=== PATIENT | male | born 1990 | race Caucasian/White ===

== ENCOUNTER 2016-10-21 04:27 | Inpatient (IN) | payer OTHER ==
[2016-10-21 05:08] VITALS: BMI 19.9
--- NOTE | 2016-10-21 05:53 | ED PDOC ---
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 Patient states he has been experiencing right-sided testicular pain/swelling over the past week, associated with abdominal pain. Patient also complaining of chills and nausea for the past 4 days. Patient notes 2 weeks ago he had right- sided flank pain, which has resolved, but states he was scheduled for a renal ultrasound for further follow-up. Patient denies any fever, chills, chest pain, shortness of breath, diarrhea, back pain, neck pain, headache, dizziness, or any other complaints. Time/Duration: 1 week Symptom Onset: Gradual Symptom Course: Unchanged Activities at Onset: Rest, Light Context: Home Past Medical History - Provider Review Nursing Documentation Reviewed: Yes - Infectious Disease Hx of Infectious Diseases: None - Tetanus Immunization Tetanus Immunization: Unknown - Cardiac Hx Cardiac Disorders: No Other/Comment: VATER syndrome - Pulmonary Hx Respiratory Disorders: No - Neurological Hx Neurological Disorder: No - HEENT Hx HEENT Disorder: No - Renal Hx Renal Disorder: Yes Other/Comment: Chronic UTIs and Urinary Surgeries for obstructions - Endocrine/Metabolic Hx Endocrine Disorders: No - Hematological/Oncological Hx Blood Disorders: No - Integumentary Hx Dermatological Disorder: No - Musculoskeletal/Rheumatological Hx Falls: No - Gastrointestinal Hx Gastrointestinal Disorders: No - Genitourinary/Gynecological Hx Genitourinary Disorders: No Hx Urinary Tract Infection: Yes - Psychiatric Hx Psychophysiologic Disorder: No Hx Substance Use: No - Surgical History Other/Comment: Spine, left hand, Esophagus; surgery for testicular torsion - Anesthesia Hx Anesthesia: Yes Hx Anesthesia Reactions: No Hx Malignant Hyperthermia: No - Suicidal Assessment Feels Threatened In Home Enviroment: No Family/Social History - Physician Review Nursing Documentation Reviewed: Yes Family/Social History: No Known Family HX Smoking Status: Never Smoked Hx Alcohol Use: No Hx Substance Use: No Allergies/Home Meds Allergies/Adverse Reactions: Allergies Sulfa (Sulfonamide Antibiotics) Allergy (Verified 10/21/16 05:55) ITCHING Review of Systems - Physician Review All systems were reviewed & negative as marked: Yes - Review of Systems Constitutional: Other (+chills) Eyes: Normal ENT: Normal Respiratory: Normal. absent: SOB, Cough Cardiovascular: Normal. absent: Chest Pain Gastrointestinal: Abdominal Pain Genitourinary Male: Other (+right testicular pain) Musculoskeletal: Back Pain. absent: Neck Pain Skin: Normal. absent: Rash Neurological: Normal. absent: Headache, Dizziness Endocrine: Normal Hemo/Lymphatic: Normal Psychiatric: Normal Physical Exam Vital Signs Reviewed: Yes Vital Signs Temp Pulse Resp BP Pulse Ox 10/21/16 05:08 98.6 F 72 18 112/64 100 Temperature: Afebrile Blood Pressure: Normal Pulse: Regular Respiratory Rate: Normal Appearance: Positive for: Well-Appearing, Non-Toxic, Comfortable Pain Distress: None Mental Status: Positive for: Alert and Oriented X 3 - Systems Exam Head: Present: Atraumatic, Normocephalic Pupils: Present: PERRL Extroacular Muscles: Present: EOMI Conjunctiva: Present: Normal Mouth: Present: Moist Mucous Membranes Neck: Present: Normal Range of Motion Respiratory/Chest: Present: Clear to Auscultation, Good Air Exchange. No: Respiratory Distress, Accessory Muscle Use Cardiovascular: Present: Regular Rate and Rhythm, Normal S1, S2. No: Murmurs Abdomen: Present: Normal Bowel Sounds. No: Tenderness, Distention, Peritoneal Signs Genitourinary Male: Present: Testicle Tenderness (Severe tenderness to right testicle), Testicle Swelling (Significantly swollen right testicle) Upper Extremity: Present: Normal Inspection. No: Cyanosis, Edema Lower Extremity: Present: Normal Inspection. No: Edema Neurological: Present: GCS=15, CN II-XII Intact, Speech Normal Skin: Present: Warm, Dry, Normal Color. No: Rashes Psychiatric: Present: Alert, Oriented x 3, Normal Insight, Normal Concentration Medical Decision Making ED Course and Treatment: 10/21/16 05:53 Impression: 26 year old male complaining of right-sided testicular pain/swelling for 1 week. Plan: -- US Duplex Testes -- Labs, amylase, lipase -- Urinalysis -- IV fluids -- Zofran -- Pepcid -- Morphine -- Reassess and disposition Prior Visits: Notes and results from previous visits were reviewed. Progress Notes: Concern that patient has had symptoms in testicle for a week - high concern for torsion but far past 6 hour window - sono and CT ordered, along with analgesia - case endorsed to Dr. Buckner. 10/21/16 07:37 - Lab Interpretations Lab Results: 10/21/16 07:15 10/21/16 07:15 Lab Results 10/21/16 07:15: WBC 14.4 H D, RBC 5.30, Hgb 17.2, Hct 47.2, MCV 89.1, MCH 32.5, MCHC 36.4, RDW 11.7, Plt Count 255, MPV 11.4 H, Gran % 84.8 H, Lymph % (Auto) 9.5 L, [place] % (Auto) 5.5, Eos % (Auto) 0.1 L, Baso % (Auto) 0.1, Gran # 12.22 H , Lymph # 1.4, [place] # 0.8 H, Eos # 0.0, Baso # 0.01, PT 10.7, INR 0.99, APTT 31.1 H, Sodium 140, Potassium 3.6, Chloride 98, Carbon Dioxide 28, Anion Gap 18 , BUN 10, Creatinine 0.8, Est GFR ( Amer) > 60, Est GFR (Non-Af Amer) > 60, Random Glucose 117 H, Calcium 9.7, Total Bilirubin 2.6 H, AST 55, ALT 65 H, Alkaline Phosphatase 113, Total Protein 9.4 H, Albumin 4.8, Globulin 4.5, Albumin/Globulin Ratio 1.1, Amylase 98, Lipase 56 - RAD Interpretation Radiology Orders: 10/21/16 06:08 TESTES DUPLEX COMPLETE [US] Stat - Medication Orders Current Medication Orders: Discontinued Medications Acetaminophen (Tylenol 325mg Tab) 650 mg PO Q4H PRN PRN Reason: Pain, Mild (1-3) Last Admin: 10/23/16 00:19 Dose: 650 MG [facility] Pain/Vitals Document 10/23/16 00:19 KGD (Rec: 10/23/16 00:19 KGD [id number]) Presence of Pain Presence of Pain No Pain Scale Used Pain Scale Used Numeric Location Pain 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 Yes Sleep Is patient sleeping during reassessment? No Presence of Pain Presence of Pain No Amoxicillin/Clavulanate Potassium (Augmentin 875 Mg-125 Mg Tab) 1 tab PO Q12 CODY PRN Reason: Protocol Stop: 10/30/16 10:01 Last Admin: 10/23/16 09:00 Dose: 1 TAB Doxycycline Hyclate (Doryx) 100 mg PO Q12 CODY PRN Reason: Protocol Stop: 10/30/16 22:01 Last Admin: 10/23/16 09:00 Dose: 100 MG Famotidine (Pepcid) 20 mg IVP STAT STA Stop: 10/21/16 06:11 Last Admin: 10/21/16 07:23 Dose: 20 MG IVP Administration Document 10/21/16 07:23 TA (Rec: 10/21/16 07:23 TA [id number]) Charges for Administration # of IVP Administrations 1 Sodium Chloride (Sodium Chloride 0.9%) 1,000 mls @ 1,000 mls/hr IV .Q1H STA Stop: 10/21/16 07:09 Last Admin: 10/21/16 07:23 Dose: 1,000 MLS/HR eMAR Start Stop Document 10/21/16 07:23 TA (Rec: 10/21/16 07:23 TA [id number]) Intravenous Solution Start Date 10/21/16 Start Time 07:23 Meropenem 1g/NS 100mL IVPB (Meropenem 1g/Ns 100ml Ivpb) 100 mls @ 100 mls/hr IVPB STAT STA PRN Reason: Protocol Stop: 10/21/16 08:51 Last Admin: 10/21/16 08:38 Dose: 100 MLS/HR eMAR Start Stop Document 10/21/16 08:38 TA (Rec: 10/21/16 08:38 TA [id number]) Intravenous Solution Start Date 10/21/16 Start Time 08:38 Meropenem 1g/NS 100mL IVPB (Meropenem 1g/Ns 100ml Ivpb) 100 mls @ 100 mls/hr IVPB Q8 CODY PRN Reason: Protocol Stop: 10/30/16 22:01 Last Admin: 10/23/16 05:25 Dose: 100 MLS/HR eMAR Start Stop Document 10/23/16 05:25 KGD (Rec: 10/23/16 05:25 KGD [id number]) Intravenous Solution Start Date 10/23/16 Start Time 05:25 End Date 10/23/16 End time 06:25 Total Infusion Time 60 Sodium Chloride (Sodium Chloride 0.9%) 1,000 mls @ 100 mls/hr IV .Q10H CODY Stop: 10/22/16 03:29 Last Admin: 10/21/16 17:34 Dose: 100 MLS/HR eMAR Start Stop Document 10/21/16 17:34 MJO (Rec: 10/21/16 17:34 MJO [id number]) Intravenous Solution Start Date 10/21/16 Start Time 17:34 Morphine Sulfate (Morphine) 4 mg IVP STAT STA Stop: 10/21/16 06:11 Last Admin: 10/21/16 07:22 Dose: 4 MG [facility] Pain Assessment Document 10/21/16 07:22 TA (Rec: 10/21/16 07:23 TA [id number]) Pain Reassessment Is this a pain reassessment? No Sleep Is patient sleeping during reassessment? No Presence of Pain Presence of Pain Yes Pain Scale Used Pain Scale Used Numeric IVP Administration Document 10/21/16 07:22 TA (Rec: 10/21/16 07:23 TA [id number]) Charges for Administration # of IVP Administrations 1 Re-Assess: RUI Pain Assessment Document 10/21/16 10:30 MJO (Rec: 10/21/16 17:13 MJO [id number]) Pain Reassessment Is this a pain reassessment? Yes Sleep Is patient sleeping during reassessment? No Presence of Pain Presence of Pain No Morphine Sulfate (Morphine) 2 mg IVP Q4 PRN PRN Reason: Pain, moderate (4-7) Ondansetron HCl (Zofran Inj) 4 mg IVP STAT STA Stop: 10/21/16 06:11 Last Admin: 10/21/16 07:23 Dose: 4 MG IVP Administration Document 10/21/16 07:23 TA (Rec: 10/21/16 07:23 TA [id number]) Charges for Administration # of IVP Administrations 1 Pneumococcal Polyvalent Vaccine (Pneumovax 23 Vaccine) 0.5 ml IM .ONCE ONE Stop: 10/21/16 18:06 - Scribe Statement The provider has reviewed the documentation as recorded by the Leeanna Bradshaw Provider Attestation: All medical record entries made by the Christopheribdeng were at my direction and personally dictated by me. I have reviewed the chart and agree that the record accurately reflects my personal performance of the history, physical exam, medical decision making, and the department course for this patient. I have also personally directed, reviewed, and agree with the discharge instructions and disposition. Disposition/Present on Arrival - Present on Arrival Any Indicators Present on Arrival: No History of DVT/PE: No History of Uncontrolled Diabetes: No Urinary Catheter: No History of Decub. Ulcer: No History Surgical Site Infection Following: None - Disposition Have Diagnosis and Disposition been Completed?: Yes Diagnosis: Testicular pain Disposition: HOSPITALIZED Disposition Time: 07:00 Patient Plan: Admission Condition: GOOD
[2016-10-21] MEDS ORDERED: Sodium Chloride 0.9% 1,000 ML IV STA (06:10)
[2016-10-21] MEDS ORDERED: Morphine 4 mg/ml ISec IVP STA (06:10)
[2016-10-21 07:30] LABS: ADD MANUAL DIFF? NO
--- NOTE | 2016-10-21 07:33 | ED PDOC ---
Physical Exam Vital Signs Reviewed: Yes Vital Signs Temp Pulse Resp BP Pulse Ox 10/21/16 05:08 98.6 F 72 18 112/64 100 Temperature: Afebrile Blood Pressure: Normal Pulse: Regular Respiratory Rate: Normal Medical Decision Making ED Course and Treatment: 10/21/16 07:32 Patient signed out to me by Dr. Prince at 07:00. Pending ultrasound results. 10/21/16 08:09 pt's abd soft/nt/nd, no RLQ or suprapubic TTP. No hernias. L. testicle non-tender R. testicle with swelling and tenderness to palpation. Not high riding. appears distended. dw US tech, states no torsion. R. epididomitis. dw Dr. Hoff, accepted to his service, recommends meropenem based on previous UCx. Pt requests Dr. Hoff. pt states he is currently not in pain, aware of and agrees with plan Report Date: 10/21/16 08:20 Procedure: Testes ultrasound Dictated By: Rob Pastrana MD Impression: Findings consistent with right epididymis. No evidence of right orchitis. Incidental 8 mm right epididymal cyst. No evidence of testicular torsion. - Lab Interpretations Lab Results: 10/21/16 07:15 10/21/16 07:15 Lab Results 10/21/16 07:15: WBC 14.4 H D, RBC 5.30, Hgb 17.2, Hct 47.2, MCV 89.1, MCH 32.5, MCHC 36.4, RDW 11.7, Plt Count 255, MPV 11.4 H, Gran % 84.8 H, Lymph % (Auto) 9.5 L, [place] % (Auto) 5.5, Eos % (Auto) 0.1 L, Baso % (Auto) 0.1, Gran # 12.22 H , Lymph # 1.4, [place] # 0.8 H, Eos # 0.0, Baso # 0.01, PT 10.7, INR 0.99, APTT 31.1 H, Sodium 140, Potassium 3.6, Chloride 98, Carbon Dioxide 28, Anion Gap 18 , BUN 10, Creatinine 0.8, Est GFR ( Amer) > 60, Est GFR (Non-Af Amer) > 60, Random Glucose 117 H, Calcium 9.7, Total Bilirubin 2.6 H, AST 55, ALT 65 H, Alkaline Phosphatase 113, Total Protein 9.4 H, Albumin 4.8, Globulin 4.5, Albumin/Globulin Ratio 1.1, Amylase 98, Lipase 56 - RAD Interpretation Radiology Orders: 10/21/16 06:08 TESTES DUPLEX COMPLETE [US] Stat - Medication Orders Current Medication Orders: Meropenem 1g/NS 100mL IVPB (Meropenem 1g/Ns 100ml Ivpb) 100 mls @ 100 mls/hr IVPB STAT STA PRN Reason: Protocol Stop: 10/21/16 08:51 Last Admin: 10/21/16 08:38 Dose: 100 MLS/HR eMAR Start Stop Document 10/21/16 08:38 TA (Rec: 10/21/16 08:38 TA [id number]) Intravenous Solution Start Date 10/21/16 Start Time 08:38 Discontinued Medications Famotidine (Pepcid) 20 mg IVP STAT STA Stop: 10/21/16 06:11 Last Admin: 10/21/16 07:23 Dose: 20 MG IVP Administration Document 10/21/16 07:23 TA (Rec: 10/21/16 07:23 TA [id number]) Charges for Administration # of IVP Administrations 1 Sodium Chloride (Sodium Chloride 0.9%) 1,000 mls @ 1,000 mls/hr IV .Q1H STA Stop: 10/21/16 07:09 Last Admin: 10/21/16 07:23 Dose: 1,000 MLS/HR eMAR Start Stop Document 10/21/16 07:23 TA (Rec: 10/21/16 07:23 TA [id number]) Intravenous Solution Start Date 10/21/16 Start Time 07:23 Morphine Sulfate (Morphine) 4 mg IVP STAT STA Stop: 10/21/16 06:11 Last Admin: 10/21/16 07:22 Dose: 4 MG MAR Pain Assessment Document 10/21/16 07:22 TA (Rec: 10/21/16 07:23 TA [id number]) Pain Reassessment Is this a pain reassessment? No Sleep Is patient sleeping during reassessment? No Presence of Pain Presence of Pain Yes Pain Scale Used Pain Scale Used Numeric IVP Administration Document 10/21/16 07:22 TA (Rec: 10/21/16 07:23 TA [id number]) Charges for Administration # of IVP Administrations 1 Ondansetron HCl (Zofran Inj) 4 mg IVP STAT STA Stop: 10/21/16 06:11 Last Admin: 10/21/16 07:23 Dose: 4 MG IVP Administration Document 10/21/16 07:23 TA (Rec: 10/21/16 07:23 TA [id number]) Charges for Administration # of IVP Administrations 1 - Scribe Statement The provider has reviewed the documentation as recorded by the Scribdeng Pandey Provider Scribe Attestation: All medical record entries made by the Scribe were at my direction and personally dictated by me. I have reviewed the chart and agree that the record accurately reflects my personal performance of the history, physical exam, medical decision making, and the department course for this patient. I have also personally directed, reviewed, and agree with the discharge instructions and disposition. Disposition/Present on Arrival - Present on Arrival Any Indicators Present on Arrival: No History of DVT/PE: No History of Uncontrolled Diabetes: No Urinary Catheter: No History of Decub. Ulcer: No History Surgical Site Infection Following: None - Disposition Have Diagnosis and Disposition been Completed?: Yes Diagnosis: Testicular pain Disposition: HOSPITALIZED Disposition Time: 08:12 Patient Plan: Admission Patient Problems: Current Active Problems Problem Status Diagnosed Testicular pain Acute Condition: GOOD
[2016-10-21 07:37] LABS: BASO # 0.01 K/mm3 (0.0-2.0); BASO % 0.1 % (0.0-3.0); EOS % 0.1 % (1.5-5.0); GRAN # 12.22 (1.4-6.5); GRAN % 84.8 % (50.0-68.0); HEMATOCRIT 47.2 % (42.0-52.0); LYMPH # 1.4 (1.2-3.4); LYMPH % 9.5 % (22.0-35.0); MEAN CELL VOLUME 89.1 fL (80.0-105.0); MEAN CORPUSCULAR HEMOGLOBIN 32.5 pg (25.0-35.0); MEAN CORPUSCULAR HGB CONC 36.4 g/dl (31.0-37.0); MEAN PLATELET VOLUME 11.4 fl (7.0-11.0); MONO # 0.8 (0.1-0.6); MONO % 5.5 % (1.0-6.0); PLATELET COUNT 255 10^3/uL (120.0-450.0); RED CELL DISTRIBUTION WIDTH 11.7 % (11.5-14.5); WHITE BLOOD COUNT 14.4 10^3/ul (4.5-11.0)
[2016-10-21 07:48] LABS: ALB/GLOB RATIO 1.1 (1.1-1.8); ALKALINE PHOSPHATASE 113 U/L (38-133); ALT/SGPT 65 U/L (7-56); AMYLASE 98 U/L (35-125); AST/SGOT 55 U/L (15-59); BILIRUBIN,TOTAL 2.6 mg/dL (0.2-1.3); BLOOD UREA NITROGEN 10 mg/dL (7-21); CALCIUM 9.7 mg/dL (8.4-10.5); CARBON DIOXIDE 28 mmol/L (21-33); CHLORIDE 98 mmol/L (98-107); GFR AFRICAN-AMERICAN > 60; GLUCOSE,RANDOM 117 mg/dL (70-110); LIPASE 56 U/L (23-300); POTASSIUM 3.6 mmol/L (3.6-5.0); SODIUM 140 mmol/L (132-148); TOTAL PROTEIN 9.4 g/dL (5.8-8.3)
[2016-10-21 07:52] LABS: INR 0.99 (0.93-1.08); PARTIAL THROMBOPLASTIN TIME 31.1 Seconds (23.7-30.8)
[2016-10-21] MEDS ORDERED: Meropenem 1g/NS 100mL IVPB 100 ML IVPB STA (07:52)
--- NOTE | 2016-10-21 08:22 | US ---
HISTORY: R testicular pain - r/o torsion TECHNIQUE: Realtime sonography through the scrotum with color and doppler flow. COMPARISON: 07/22/2012 FINDINGS: RIGHT TESTICLE: Measures 5.6 x 2.5 x 2.8 cm. Homogeneous echotexture. No discrete mass. Normal flow. RIGHT EPIDIDYMIS: Epididymal head measures 1.8 x 1.5 x 1.6 cm. Cm. Markedly hypervascular. Consistent with epididymitis. No evidence orchitis. Incidental epididymal cyst, 4 x 7 x 8 mm. LEFT TESTICLE: Measures 5.3 x 1.4 x 2.8 cm. Homogeneous echotexture. No mass. Normal flow. LEFT EPIDIDYMIS: Epididymal head measures 5 x 6 x 8 mm. . Grossly unremarkable appearance with normal flow. HYDROCELE: None. VARICOCELE: None. OTHER FINDINGS: None. IMPRESSION: Findings consistent with right epididymis. No evidence of right orchitis. Incidental 8 mm right epididymal cyst. No evidence of testicular torsion.
[2016-10-21] MEDS ORDERED: Morphine 2 mg/ml ISec IVP PRN (08:50)
--- NOTE | 2016-10-21 11:17 | HP ---
CHIEF COMPLAINT AND HISTORY OF PRESENT ILLNESS: This is a 26-year-old male who is coming in [facility] the [facility] with a past medical history of VACTERL association. The patient states that he was having ri ght scrotal pain for the past few days. He does have a history of ESBL urinary tract infection. He does have a history of chronic UTIs. The patient says that his pain was fairly significant. He had some swelling. He rated the pain 8/10. He is complaining of chills and nausea for the past 4 days. He says he was also having right-sided flank pain for the past 2 weeks. He was seeing Dr. Renee Claros in [place] for evaluation and had an ultrasound and blood work that was to be done. He says he h ad his ultrasound done. REVIEW OF SYSTEMS: He has no headaches, dizziness, and no abdominal pain, no back pain, no dysuria, no weakness in the arms or the legs. All other review of symptoms are within normal limits except as mentioned. ALLERGIES: SULFA. HOME MEDICATIONS: None. PAST MEDICAL HISTORY: 1. VACTERL association (vertebral anomalies, anal atresia, cardiac defects, tracheoesophageal fistul a, esophageal atresia, renal/radial anomalies, limb defects). 2. Sepsis secondary to UTI. SOCIAL HISTORY: He does not smoke, drink, or use drugs. He is not . FAMILY HISTORY: Noncontributory. PHYSICAL EXAMINATION: VITAL SIGNS: Temperature is 98.6, pulse of 72. Blood pressure 112/64, respirations 18. O2 saturati on is 100%. GENERAL: The patient is lying in bed, flat, and in no apparent distress. HEAD AND NECK EXAM: Atraumatic, normocephalic. Conjunctivae are pink. Throat clear and mouth with moist mucosa. Oropharynx benign. EYES: Extraocular movements are intact. PERRLA. NECK: Supple. No JVD, thyromegaly, or adenopathy. No bruits. HEART: S1 and S2 regular rate and rhythm. No murmurs, rubs, or gallops. LUNGS: Clear to auscultation bilaterally. No wheezing rales or rhonchi appreciated. No retraction s on exam. ABDOMEN: Soft, nontender, nondistended. Bowel sounds are positive in all quadrants. No rebound. No hepatosplenomegaly. EXTREMITIES: No cyanosis, clubbing, or edema. NEURO: No facial asymmetry, tongue is midline, no uvula deviation. Power is 5/5 in upper extremity and 5/5 in lower extremity. Sensation is normal in upper extremity and lower extremity. PSYCH: Awake, alert, oriented x3. No anxiety or depression symptoms. Good insight. Normal affec t. : No CVA tenderness VASCULAR: 2+ pulses in carotid and pedal pulses. SKIN: No erythema or abnormal nodules noted. SPINE: Normal curvature. LYMPHADENOPATHY: No anterior cervical or posterior cervical adenopathy. No inguinal adenopathy. LABORATORY DATA: Testicular ultrasound done shows findings consistent with right-sided epididymitis. ASSESSMENT: 1. Right epididymitis. 2. 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 3. Scoliosis of the thoracic and lumbar spine. 4. An 8-mm right epididymal cyst. 5. VACTERL association. PLAN: The patient is comfortable now that he has received pain medication with morphine. I will con tinue with morphine. I have started him on meropenem. He has a history of urinary tract infections with ESBL. About 8 months ago, he was treated with a urinary tract infection secondary to [place] a coli - I believe it was Escherichia coli, with Cipro that was sensitive. The patient is on Tylenol for pain. He was given IV fluids. I did speak to Dr. Moscoso regarding the case. I will also g et Dr. Larry, the patient's urologist, to follow. The patient has an elevated white count of 14.4. The rest of his chemistry is fairly normal except for total bilirubin that is mildly elevated at 2. 6. I did speak to the patient's father at the bedside to give an update on the patient's diagnosis a nd plan of care. Enrrique Hoff MD cc: [id number] TT: 10/21/2016 11:17:22 jn
[2016-10-21 14:49] LABS: PH,URINE 6.5 (4.7-8.0); URINE BILIRUBIN NEGATIVE (NEGATIVE); URINE BLOOD NEGATIVE (NEGATIVE); URINE GLUCOSE (UA) NEGATIVE (NEGATIVE); URINE KETONE 15 mg/dL (NEGATIVE); URINE LEUKOCYTE ESTERASE SMALL Leu/uL (NEGATIVE); URINE PROTEIN NEGATIVE mg/dL (<30 mg/dL); URINE UROBILINOGEN 0.2 E.U./dL (<1 E.U./dL)
[2016-10-21 14:54] LABS: URINE APPEARANCE SL CLOUDY (CLEAR); URINE COLOR YELLOW (YELLOW)
[2016-10-21 15:05] LABS: URINE RBC 0 - 2 /hpf (0-2); URINE WBC 15 - 20 /hpf (0-6)
[2016-10-21 15:06] LABS: URINE BACTERIA FEW (NEG); URINE EPITHELIAL CELLS 0 - 2 /hpf (0-5)
[2016-10-21 16:56] VITALS: RESP 20
[2016-10-21] MEDS ORDERED: Sodium Chloride 0.9% 1,000 ML IV SCH (17:30)
[2016-10-21] MEDS ORDERED: Pneumococcal 23-Valent Vaccine IM ONE (18:05)
--- NOTE | 2016-10-21 18:28 | CON ---
DATE: 10/21/2016 The patient seen in 571, bed 1. CHIEF COMPLAINT: Right scrotal pain times several days. HISTORY OF PRESENT ILLNESS: This is a 26-year-old male, known to me from previous admission. The pa rivka with a history of VACTERL syndrome with scoliosis of the spine and deformity and who has had a history of right testicular torsion, has had multiple surgeries in the past, who is ALLERGIC TO SULFA , who was treated approximately 2 years ago here in [facility] for ESBL bacteremia and ESBL uri nary tract infection and pyelonephritis, now returns with right testicular scrotal pain. He is seen in the Emergency Room and he denies any fevers. He is having abdominal pain on and off, and scrotal pain. No chest pain, no cough, no hemoptysis. PAST MEDICAL HISTORY: Significant for back VACTERL syndrome with scoliosis and spine deformity and h istory of ESBL bacteremia, ESBL pyelonephritis. PAST SURGICAL HISTORY: Significant for multiple surgeries including right testicular torsion surgery . ALLERGIES: THE PATIENT IS ALLERGIC TO SULFA. MEDICATIONS: At home are noted and no known medication. PHYSICAL EXAMINATION: GENERAL: He is in bed. VITAL SIGNS: Temperature of 98, heart rate of 115, respiratory rate of 20, blood pressure is 130/70. HEENT: Unremarkable. NECK: Supple. LUNGS: Have decreased breath sounds. HEART: Normal S1, S2. ABDOMEN: Soft, nontender. GENITAL: Examination of his right scrotum, he has significant tenderness. LABORATORY EXAMINATION: Reveals a white count of 14,400, hemoglobin of 17, platelets of 255. Chemis tries reveals the BUN of 10, creatinine of 0.8, random glucose of 117. LFTs are elevated. Urinalysi s reveals to be 15 WBCs and few bacteria. On the history, he states that he is sexually active. He has a female friend. The last sexual encou nter was approximately 2 months ago. The patient also had a testicular ultrasound with a right epidi dymitis, no evidence of orchitis. ASSESSMENT AND PLAN: A 26-year-old male with vertebral abnormalities, anal atresia, cardiac abnormal ities, tracheoesophageal fistula and/or esophageal atresia, renal agenesis and dysplasia and limb def ects syndrome, scoliosis and spine deformity and history of extended-spectrum beta-lactamase bacterem ia, extended-spectrum beta-lactamase urinary tract infection, pyelonephritis with sepsis who is sexua lly active with right sepsis with right epididymitis. We will treat the patient with meropenem and d oxycycline. We will also order an HIV, RPR. We will order a GC and chlamydia workup. Pending blood cultures, urine cultures and clinical response. We will follow closely with you and make further re commendations. Case discussed with Dr. Hoff. Dereck Moscoso MD cc: [id number] TT: 10/21/2016 18:28:29 Confirmation # [id number] Dictation # [id number]
[2016-10-21] MEDS: Meropenem 1g/NS 100mL IVPB 100 ML IVPB SCH (21:45)
[2016-10-22 06:12] LABS: HEMATOCRIT 43.5 % (42.0-52.0); MEAN CELL VOLUME 89.5 fL (80.0-105.0); MEAN CORPUSCULAR HEMOGLOBIN 31.7 pg (25.0-35.0); MEAN CORPUSCULAR HGB CONC 35.4 g/dl (31.0-37.0); MEAN PLATELET VOLUME 10.5 fl (7.0-11.0); RED CELL DISTRIBUTION WIDTH 11.7 % (11.5-14.5); WHITE BLOOD COUNT 13.9 10^3/ul (4.5-11.0)
[2016-10-22] MEDS: Meropenem 1g/NS 100mL IVPB 100 ML IVPB SCH ×3 (06:18→21:48)
[2016-10-22 06:30] LABS: ALB/GLOB RATIO 1.1 (1.1-1.8); ALKALINE PHOSPHATASE 71 U/L (38-133); ALT/SGPT 52 U/L (7-56); AST/SGOT 37 U/L (15-59); BILIRUBIN,TOTAL 3.1 mg/dL (0.2-1.3); BLOOD UREA NITROGEN 8 mg/dL (7-21); CALCIUM 9.2 mg/dL (8.4-10.5); CARBON DIOXIDE 30 mmol/L (21-33); CHLORIDE 102 mmol/L (98-107); GFR AFRICAN-AMERICAN > 60; GLUCOSE,RANDOM 92 mg/dL (70-110); POTASSIUM 4.1 mmol/L (3.6-5.0); SODIUM 139 mmol/L (132-148)
--- NOTE | 2016-10-22 11:17 | PN ---
DATE: 10/22/2016 The patient seen earlier this morning. He states that his scrotal pain is much improved, although st ill present. Overall, there is improvement. He has no fevers, no nausea, no abdominal pain this mor morris. PHYSICAL EXAMINATION: VITAL SIGNS: Temperature is 98, heart rate of 120, blood pressure is 120/80, respiratory rate of 16. HEENT: Unremarkable. NECK: Supple. LUNGS: Have decreased breath sounds. HEART: Normal S1, S2. ABDOMEN: Soft. LABORATORY EXAMINATION: Reveals the white count is down to 13,900, hemoglobin of 15, BUN of 8, creat inine of 0.8. Urinalysis is noted. Microbiology is pending. Review of the orders reveals the patie nt's workup is still pending and currently on meropenem and doxycycline. 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 History of extended-spectrum beta-lactamase bacteremia, extended-spectrum beta-lactamase in the urine and ex tended-spectrum beta-lactamase pyelonephritis on this admission, admitted with sepsis who is sexually active with a right epididymitis causing the sepsis and on meropenem and doxycycline pending culture results, GC workup, chlamydia workup, HIV, RPR and urine culture results all pending. Blood culture s were ordered and canceled by laboratory, the reason of which is unclear. At this point, repeating order, blood cultures not significant since the patient has already received antibiotics. Dereck Moscoso MD cc: [id number] TT: 10/22/2016 11:17:11 Confirmation # [id number] Dictation # [id number]
--- NOTE | 2016-10-22 13:23 | PN ---
DATE: 10/22/2016 SUBJECTIVE: The patient is a 26-year-old, seen and examined. He states his testicular pain is much better. He is eating and tolerating. He has a mild headache because of over sleeping, but doing bet ter now since he took Tylenol. PHYSICAL EXAMINATION: VITAL SIGNS: He is afebrile, pulse 81, respirations 20, blood pressure 132/79. LUNGS: Bilateral fair airflow, no rhonchi or crackle. HEART: S1 and S2 audible. No murmur. ABDOMEN: Soft, nontender, no rebound, no guarding. NEUROLOGIC: He is awake and alert, communicative, ambulatory. LABORATORY: WBC 13.9, hemoglobin 15, hematocrit 43, platelets 195. Chemistry: Sodium 139, potassiu m 4.1, chloride 102, CO2 30, BUN 8, creatinine 0.8, blood sugar of 92. Bilirubin 3.1. He had a test icular ultrasound done that shows right epididymitis, but no orchitis. Also has an 80 mm right epidid ymal cyst. ASSESSMENT: 1. Right epididymitis. 2. VACTERL syndrome. 3. Leukocytosis, improving. 4. Malrotated left solitary kidney. 5. Thoracic and lumbar scoliosis. PLAN: The patient is currently on meropenem and doxycycline. Dr. Larry has cleared the patient fo r discharge. I will reach out to infectious disease. If they are okay, will make discharge plan for a.m. since patient is clinically stable. Lana Rodriguez MD cc: [phone] TT: 10/22/2016 13:22:37 Confirmation # [id number] Dictation # [id number] yvette
--- NOTE | 2016-10-22 15:11 | PCM.URO ---
Urology Progress Note - Objective Lab Results Last 24 Hours: Laboratory Results - last 24 hr 10/22/16 05:10 WBC 13.9 H RBC 4.86 Hgb 15.4 Hct 43.5 MCV 89.5 MCH 31.7 MCHC 35.4 RDW 11.7 Plt Count 195 MPV 10.5 Sodium 139 Potassium 4.1 Chloride 102 Carbon Dioxide 30 Anion Gap 11 BUN 8 Creatinine 0.8 Est GFR ( Amer) > 60 Est GFR (Non-Af Amer) > 60 Random Glucose 92 Calcium 9.2 Total Bilirubin 3.1 H AST 37 ALT 52 Alkaline Phosphatase 71 Total Protein 7.0 Albumin 3.6 Globulin 3.4 Albumin/Globulin Ratio 1.1 Intake & Output: Intake & Output 10/21/16 10/22/16 10/22/16 18:59 06:59 18:59 Intake Total 0 780 600 Balance 0 780 600 Weight 102 lb Intake: Oral 0 780 600 Other: # Voids Urine, Voided 1 3 # Bowel Movements 0 0 0 Vital Signs: Vital Signs - 24 hr 10/21/16 10/21/16 10/21/16 16:00 17:17 17:55 Temperature 98.4 F 98.4 F Pulse Rate 115 H 122 H 122 H Pulse Rate [ 122 H Apical] Respiratory 20 20 Rate Blood Pressure 138/104 H 124/84 124/84 O2 Sat by Pulse 100 Oximetry 10/22/16 08:00 Temperature 97.6 F Pulse Rate 81 Pulse Rate [ Apical] Respiratory 20 Rate Blood Pressure 132/79 O2 Sat by Pulse 100 Oximetry
--- NOTE | 2016-10-22 17:01 | CON ---
DATE: 10/22/2016 REASON FOR CONSULTATION: Epididymitis. HISTORY OF PRESENT ILLNESS: The patient is a very pleasant gentleman. He is 26-years old. I know q uite well actually from planning for a cystoscopy to rule out urethral stricture disease. He has a l ot of voiding dysfunction and recurrent infections. For various reasons socially, mostly related to his new job and he is a therapist at [employer] and something to do with insurance information, but , the patient presented to the Emergency Room at about 3:00 a.m. and then subsequently was admitted yesterday 10/21. Urology consult was requested. They have ruled out a torsion. See the plan listed below. He has urinary troubles and pain in his testicle, particularly on the rig ht side. No gross hematuria. PAST MEDICAL AND SURGICAL HISTORY: As listed, otherwise urology taylor. REVIEW OF SYSTEMS: Listed above. SOCIAL HISTORY: As mentioned above, he just started a new job. The patient says this is why he was unable to come to the office. PHYSICAL EXAMINATION: GENERAL: He is a thin male in no apparent distress currently, resting comfortably. GENITOURINARY: His phallus is noted. His testicles are descended. There is no abscess and no evidenc e of torsion. He is just tender. LABORATORY DATA: See the chart. DIAGNOSES: Possible epididymitis with significant voiding dysfunction. I discussed with the patient options. Our urology plan will be outpatient followup when medically cl eared. He will have an outpatient cystoscopy to rule urethral stricture disease, but from a urology standpoi nt, the following is planned: 1. Elevation. 2. Motrin. 3. Antibiotics, can switch to an oral antibiotic (NOT SULFA, OF COURSE, HE IS ALLERGIC). It may be C ipro or Floxin 500 p.o. q. 12 or doxycycline 100 mg p.o. q.12. 4. Outpatient followup. Nathen Larry MD cc: [phone] TT: 10/22/2016 17:01:04 Confirmation # [id number] Dictation # [id number]
[2016-10-23] MEDS: Meropenem 1g/NS 100mL IVPB 100 ML IVPB SCH (05:25)
[2016-10-23 08:00] VITALS: BP 112/80; PULSE 105; TEMP 98.3; O2SAT 98
--- NOTE | 2016-10-23 09:00 | PN ---
DATE: 10/23/2016 SUBJECTIVE: The patient is seen in room 571, bed 1. No fevers and no chills. He is doing much bett er. No more pain. He wants to be discharged. PHYSICAL EXAMINATION: VITAL SIGNS: Temperature is 98, blood pressure is 112/80, respiratory rate of 16. HEENT: Unremarkable. NECK: Supple. LUNGS: Have decreased breath sounds. HEART: Normal S1, S2. ABDOMEN: Soft. GENITALIA: Scrotum has completely resolved, no edema, no erythema, no tenderness. LABORATORY EXAMINATION: Reveals the white count is improved down to 13,900 yesterday. BUN of 8, cre atinine of 0.8. Urinalysis is noted and serology RPR is negative. Urine culture is no growth. 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 The patient also had a history o f extended-spectrum beta-lactamase bacteremia, extended-spectrum beta-lactamase in the urine and pyel onephritis, admitted with sepsis with a right epididymitis, which appears to have completely resolved . The patient is eager to leave early this morning. I recommend a repeat CBC to follow up the resol ution of his white count. He is eager to leave. He promises to follow up with Dr. Hoff who we t exted this morning. Dr. Hoff will follow him as outpatient. Repeat a CBC. Based on findings as far as his workup and culture findings, he will manage the remaining as an outpatient with at least 7 days of amoxicillin, clavulanic acid which is Augmentin 875 p.o. b.i.d. 7 days, and doxycycline 100 mg p.o. b.i.d. x 7 days. May need to be extended if any new information becomes available as an out patient. His HIV is pending, FTA is pending. His GC and chlamydia workup is still pending and a rep eat CBC as outpatient. Dereck Moscoso MD cc: [phone] TT: 10/23/2016 08:59:41 Confirmation # [id number] Dictation # [id number] jn
[2016-10-23] MEDS ORDERED: Amoxicillin-Clav 875-125 mg Tab PO SCH (10:00)
--- NOTE | 2016-10-23 20:10 | DS ---
The patient is a 26-year-old seen and examined, sitting in chair, comfortable. He states his testicu lar discomfort has significantly improved. No fever, no chills, no nausea or vomiting, no diarrhea. Eating and tolerating. Ambulating. PHYSICAL EXAMINATION: VITAL SIGNS: He is afebrile, pulse 81, respirations 20, blood pressure 132/79. LUNGS: Bilateral fair airflow, no rhonchi or crackle. HEART: S1, S2 audible. ABDOMEN: Soft, nontender, no rebound, no guarding. NEUROLOGIC: He is awake and alert, communicative, ambulatory. LABORATORY EXAM: His is negative. HIV test is negative. ASSESSMENT: 1. Right testicular pain secondary to epididymitis probably. 2. History of VATER syndrome. 3. Kyphoscoliosis. 4. History of anal atresia. 5. Leukocytosis, improving. PLAN: The patient was evaluated by infectious disease and it is recommended to start him on Augmenti n 875 twice a day for a week and doxycycline 100 mg twice a day. He will follow up with Dr. Hoff after he finishes his antibiotics. He can resume his regular medication and he will follow with Dr. Hoff as outpatient and Dr. Larry as outpatient. Lana Rodriguez MD cc: [phone] TT: 10/23/2016 20:09:50 vt
== END 2016-10-23 10:51 | disposition home or self-care (01) | DRG 871 ==
LOC: ED 04:27 → ERH 08:12 → 5RSO 10:22
PROVIDERS: ADMIT Internal Medicine Nephrology; ATTEND Internal Medicine Nephrology
DX: A41.9 Sepsis, unspecified organism (principal); N45.1 Epididymitis; Q39.0 Atresia of esophagus without fistula; Q42.3 Congenital absence, atresia and stenosis of anus without fistula; Q87.2 Congenital malformation syndromes predominantly involving limbs; M41.35 Thoracogenic scoliosis, thoracolumbar region; N50.3 Cyst of epididymis; Q63.2 Ectopic kidney; Z88.2 Allergy status to sulfonamides; Z87.440 Personal history of urinary (tract) infections